=== PATIENT | female | born 1980 | race Caucasian/White ===

== ENCOUNTER 2021-09-17 04:48 | Emergency (ER) | payer OTHER ==
[2021-09-17 04:58] VITALS: BP 116/63; PULSE 82; TEMP 98.1; BMI 23.5
== END 2021-09-17 05:43 | disposition home or self-care (01) ==
LOC: FER 04:48
DX: R07.89 Other chest pain (principal); R00.2 Palpitations
CPT/HCPCS: 93005; 99283-25